=== PATIENT | female | born 1975 | race Two or more races ===

== ENCOUNTER 2016-11-14 16:11 | Emergency (ER) | payer OTHER ==
--- NOTE | 2016-11-14 17:08 | UCPHY ---
H & P Time Seen by Provider: 11/14/16 17:08 Patient Type: New HPI/ROS: HPI: 41-year-old female presents to urgent care with chief concern worsening productive cough with yellow phlegm associated with back pain that has been present x2 weeks and has progressively worsened over the past 3 days. Reports onset of body aches including back pain over the past 2 days associated with chills. Denies fever, shortness of breath, dysphagia, chest pain, abdominal pain, nausea, vomiting, diarrhea, urinary symptoms. No history of asthma or pneumonia. Has taken [id number] DayQuil with some improvement. Primary care provider in chair E Grayling ROS:10 point review of systems is negative other than as stated in HPI Physical Exam: Vital signs stable, reviewed by me General: Awake, alert, calm, cooperative. No acute distress. Head: Atraumatic. EENT: Conjuctiva mildly injected. TMs intact, without redness or bulging. Nasal mucosa is erythematous with moderate clear discharge. Pharynx mildly erythematous. Uvula midline. No tonsillar abscess or exudates. No frontal or maxillary tenderness to percussion. Respiratory: Breathing unlabored. Lungs clear to auscultation bilaterally. No accessory muscle use. CV: Heart rate regular. S1-S2 present. No murmur. GI: Abdomen soft, nontender. Bowel sounds positive x4 quadrants. : Deferred Skin: Warm, dry, intact. No rashes present. Capillary refill brisk. Musculoskeletal: Full ROM all extremities. Neuro: Alert oriented x3. Strength equal in all 4 extremities. Constitutional: Initial Vital Signs Temperature (C) 36.6 C 11/14/16 17:08 Heart Rate 83 11/14/16 17:08 Respiratory Rate 16 11/14/16 17:08 Blood Pressure 144/83 H 11/14/16 17:08 O2 Sat (%) 96 11/14/16 17:08 O2 Delivery Mode Room Air Allergies/Adverse Reactions: No Known Allergies Allergy (Verified 11/14/16 17:12) Home Medications: Medication Instructions Recorded Albuterol Hfa Anes Only [Proair 2 puffs IH QID PRN #1 mdi 11/14/16 Hfa Anes Only] Azithromycin [Zithromax] 250 mg PO DAILY #6 tab 11/14/16 HYDROcodone/HOMATROPINE HYCODA 5 - 10 ml PO HS PRN #60 ml 11/14/16 [Hycodan Syrup (*)] Medical Decision Making - Diagnostics Imaging: PA and Lateral Chest Indication: Cough and chest pain. Comparison: None Findings: Lungs are hypoventilated with mild diffuse peribronchial thickening. No pneumothorax, edema, airspace consolidation or effusion. The heart size is normal. Impression: Hypoventilation. Otherwise negative. Dictated By: Haseeb Pollock MD ED Course/Re-evaluation: Nontoxic afebrile 41-year-old presents to ED with ongoing productive cough with yellow phlegm and onset of back pain in the past couple of days. Denies fever. Denies respiratory distress, shortness of breath, or chest pain. No history of asthma. Vitals are stable. X-ray negative for evidence of pneumonia. She will be started on albuterol, Mucinex, and will receive a Z-Bj. She has been counseled to follow up with primary care, or return for recheck should she develop shortness of breath or chest pain. Differential Diagnosis: Differential diagnosis includes but is not limited to bronchitis, influenza, pneumonia, other viral URI Departure - Departure Disposition: Home, Routine, Self-Care Clinical Impression: Bronchitis Condition: Good Instructions: Acute Bronchitis (ED) Additional Instructions: Plan: Use your albuterol inhaler 2 puffs every 4-6 hours for shortness of breath, wheezing. You may use Mucinex/guaifenesin over the counter to help expectorate mucus with your cough. You may use 600 mg of ibuprofen every 6 hours for fever, inflammation, or pain. Always take ibuprofen with food and stay well hydrated while taking. Do not exceed the maximum allowable dose in a 24 hour period which is 2400 mg. You may use 1000 mg of Tylenol every 8 hours. This may be staggered with the ibuprofen. Do not exceed the maximum dose in a 24 hour period which is 3 GM or 3000 mg. Antibiotic as prescribed May use Hycodan at bedtime as needed for severe cough Use DayQuil during the day Follow up with primary care after completion of antibiotic for recheck If he developed shortness of breath or chest pain, go to emergency department Referrals: NONE *PRIMARY CARE P,. [Primary Care Provider] - As per Instructions Latonya Rolle MD [Medical Doctor] - As per Instructions Prescriptions: Albuterol Hfa Anes Only [Proair Hfa Anes Only] 2 puffs IH QID PRN #1 mdi PRN Reason: Short Of Breath/Dyspnea Azithromycin [Zithromax] 250 mg PO DAILY #6 tab HYDROcodone/HOMATROPINE HYCODA [Hycodan Syrup (*)] 5 - 10 ml PO HS PRN #60 ml PRN Reason: severe cough preventing sleep - PQRS PQRS Measurement: Not applicable
[2016-11-14 17:15] VITALS: BP 144/83; PULSE 83; RESP 16; TEMP 97.9; O2SAT 96
== END 2016-11-14 18:30 | disposition home or self-care (01) ==
LOC: CED 16:11
DX: J40 Bronchitis, not specified as acute or chronic (principal)
CPT/HCPCS: 71020-PO; 99203-PO; G0463-PO

== ENCOUNTER 2018-11-05 15:45 | Emergency (ER) | payer OTHER ==
--- NOTE | 2018-11-05 16:15 | EDPHY ---
H & P Stated Complaint: L leg pain Time Seen by Provider: 11/05/18 16:03 HPI/ROS: Chief Complaint: Leg pain HPI: 42-year-old woman presenting with left calf pain. Patient states she has been having intermittent pain for the last several weeks foot for the last 2 weeks has been constant. Pain is worse when she ambulates. Worse in the back of her calf, sometimes radiating to the front. Also complaining of pain behind her knee. No swelling. No redness. No injuries. There are no aggravating or alleviating factors. She does not smoke. No periods of immobility. No chest pain or shortness of breath. She is not on oral contraceptives. No fevers or chills. No cough. No numbness or weakness. ROS: 10 systems were reviewed and were negative except those elements noted in the HPI. PMH: Denies Social History: No smoking, no alcohol, no recreational drug use Family History: non-contributory Physical Exam: Denies Gen: Awake, Alert, No Distress, obese HEENT: Nose: no rhinorrhea Eyes: PERRLA, EOMI Mouth: Moist mucosa Neck: Supple, no JVD Chest: nontender, lungs clear to auscultation Heart: S1, S2 normal, no murmur Abd: Soft, non-tender, no guarding Back: no CVA tenderness, no midline tenderness Ext: Mild calf tenderness, left calf measures 1 cm in greater diameter than the right. There is no erythema. Is not warm to touch. There is mild swelling behind the popliteal fossa. Full range of motion of the hip knee and ankle. No bony tenderness. No deformity. No effusion. Patient is difficult to examine secondary to body habitus. Skin: no rash Neuro: CN II-XII intact, Sensation grossly intact, Strength 5/5 in bilateral upper and lower extremities - Personal History LMP (Females 10-55): IUD In Place - Medical/Surgical History Hx Asthma: No Hx Chronic Respiratory Disease: No Hx Diabetes: No Hx Cardiac Disease: No Hx Renal Disease: No Hx Cirrhosis: No Hx Alcoholism: No Hx HIV/AIDS: No Hx Splenectomy or Spleen Trauma: No Other PMH: Med hx-varicose veins. Surg-none Constitutional: Initial Vital Signs Temperature (C) 36.6 C 11/05/18 15:52 Heart Rate 93 11/05/18 15:52 Respiratory Rate 14 11/05/18 15:52 Blood Pressure 145/107 H 11/05/18 15:52 O2 Sat (%) 96 11/05/18 15:52 O2 Delivery Mode Room Air Allergies/Adverse Reactions: No Known Allergies Allergy (Verified 11/14/16 17:12) Home Medications: Medication Instructions Recorded Albuterol Hfa Anes Only [Proair 2 puffs IH QID PRN #1 mdi 11/14/16 Hfa Anes Only] Azithromycin [Zithromax] 250 mg PO DAILY #6 tab 11/14/16 HYDROcodone/HOMATROPINE HYCODA 5 - 10 ml PO HS PRN #60 ml 11/14/16 [Hycodan Syrup (*)] Medical Decision Making - Diagnostics Imaging Results: Imaging Impressions Extremity Venous Study 11/05/18 16:09 Impression: No deep venous thrombosis left leg. Findings and recommendations discussed with Emergency Department physician, Markell Christian MD at 16:36 hour, 11/05/2018. Final report concurs with initial preliminary interpretation. Imaging: Discussed imaging studies w/ call center analyst Radiologist ED Course/Re-evaluation: 42-year-old with leg pain, mild swelling on examination. No risk factors for DVT. Given the location of the pain and the fact that she does have an asymmetry in her legs Will check an ultrasound rule out DVT. Ultrasound is negative for DVT, Holly cyst, or other cause of pain. Has a normal ultrasound. Departure - Departure Disposition: Home, Routine, Self-Care Clinical Impression: Leg pain Condition: Good Instructions: Leg Pain (ED) Additional Instructions: Take ibuprofen, 600 mg every 8 hr. You may alternate with acetaminophen, 1000 mg every 8 hr. Follow up with primary care physician in about a week if symptoms are not improving. Referrals: NONE *PRIMARY CARE P,. [Primary Care Provider] - As per Instructions
[2018-11-05 17:06] VITALS: BP 130/73
== END 2018-11-05 16:50 | disposition home or self-care (01) ==
LOC: CED 15:45
DX: M79.662 Pain in left lower leg (principal)
CPT/HCPCS: 93971-PO; 99284-ER